=== PATIENT | male | born 1970 | race Caucasian/White ===

== ENCOUNTER → 2019-10-25 16:06 | Outpatient (BNVA) | payer OTHER, SELFPAY | PROVIDERS: Family Provider Family Medicine; PCP Family Medicine; Visit Provider Social Worker | DX: F33.2 Major depressive disorder, recurrent severe without psychotic features (principal); F41.1 Generalized anxiety disorder | CPT/HCPCS: 90834 ==

== ENCOUNTER → 2019-11-09 08:40 | Outpatient (BNVA) | payer OTHER, SELFPAY | PROVIDERS: Family Provider Family Medicine; PCP Family Medicine; Referring Provider Family Medicine; Visit Provider Psychiatry & Neurology Neurology | DX: G56.00 Carpal tunnel syndrome, unspecified upper limb (principal) | CPT/HCPCS: 95886; 95909 ==

== ENCOUNTER 2019-11-24 15:26 | Outpatient (CLI) | payer OTHER, SELFPAY ==
--- NOTE | 2019-11-24 16:45 | MR_ITS ---
WS: [id number] MRI CERVICAL SPINE HISTORY: neck pain COMPARISON: 04/19/2019 Mild straightening of the normal cervical lordosis. Prior anterior cervical fusion at C5-6. Signal within the cervical cord is normal. Visualized posterior fossa is unremarkable. Craniocervical junction, C1 and C2 relationship, odontoid process and soft tissues are normal. C2-C3: Normal. C3-C4: Normal. C4-C5: Normal. C5-C6: Mild narrowing of the RIGHT foramen. No significant stenosis. C6-C7: Mild osteophytic ridging with facet arthropathy and foraminal osteophytes. Very mild narrowing and encroachment upon the ventral thecal sac. Moderate bilateral foraminal stenosis. C7-T1: Small osteophyte LEFT foramen. Paraspinal soft tissue are normal. MR/MR cervical spin wo con* [id number] IMPRESSION: 1. Status post anterior cervical fusion at C5-6 with no complications. 2. Mild central and moderate bilateral foraminal stenosis at C6-7. Similar to the prior study.
== END 2019-11-24 15:27 | disposition home or self-care (01) ==
PROVIDERS: Family Provider Family Medicine; PCP Family Medicine; Visit Provider Family Medicine
DX: M54.2 Cervicalgia (principal); Z98.1 Arthrodesis status; M48.02 Spinal stenosis, cervical region
CPT/HCPCS: 72141

== ENCOUNTER → 2019-11-29 15:27 | Outpatient (BNVA) | payer OTHER, SELFPAY | PROVIDERS: Family Provider Family Medicine; PCP Family Medicine; Visit Provider Social Worker | DX: F33.2 Major depressive disorder, recurrent severe without psychotic features (principal); F41.1 Generalized anxiety disorder | CPT/HCPCS: 90834 ==

== ENCOUNTER → 2020-03-23 14:44 | Outpatient (BNVA) | payer OTHER, SELFPAY | PROVIDERS: Family Provider Family Medicine; PCP Family Medicine; Visit Provider Anesthesiology | DX: M54.9 Dorsalgia, unspecified (principal); M54.12 Radiculopathy, cervical region; Z79.1 Long term (current) use of non-steroidal anti-inflammatories (NSAID) | CPT/HCPCS: 99213; 99214 ==

== ENCOUNTER 2020-04-11 14:35 | Outpatient (CLI) | payer OTHER, SELFPAY ==
--- NOTE | 2020-04-11 14:39 | XR_ITS ---
WS: [id number] KNEE LEFT TECHNIQUE: 3 views of the left knee CLINICAL INFORMATION: left knee pain COMPARISON: None. FINDINGS: Left knee is normal in appearance. No evidence of acute fracture dislocation. No significant effusion . Patella is normal. Mild soft tissue edema. XR/XR knee LT 3V* [id number] IMPRESSION: Mild soft tissue edema. No acute fractures.
== END 2020-04-11 14:36 | disposition home or self-care (01) ==
LOC: RADWPI 14:37
PROVIDERS: Family Provider Family Medicine; PCP Family Medicine; Visit Provider Family Medicine
DX: M25.562 Pain in left knee (principal); G89.29 Other chronic pain; R60.9 Edema, unspecified
CPT/HCPCS: 73562

== ENCOUNTER 2020-04-18 15:38 | Outpatient (CLI) | payer OTHER, SELFPAY ==
[2020-04-18 15:58] LABS: Basophils % 0.4 %; Eosinophils # 0.4 10^3/uL (0.0-0.8); Eosinophils % 5.2 %; Hematocrit 42.8 % (42.0-52.0); Hemoglobin 14.2 g/dL (11.7-16.6); Lymphocytes % 35.7 %; Mean Corpuscular HGB Conc 33.2 g/dL (30.0-36.0); Mean Corpuscular Hemoglobin 29.2 pg (28.0-34.0); Mean Corpuscular Volume 88.1 fL (80-94); Mean Platelet Volume 8.7 fL (7.4-10.4); Monocytes # 0.5 10^3/uL (0.2-0.9); Monocytes % 5.8 %; Neutrophils # 4.4 10^3/uL (1.8-7.7); Neutrophils % 52.8 %; Nucleated Red Blood Cells % 0 %; Platelet Count 310 10^3/cmm (130-400); Red Blood Count 4.86 10^6/uL (4.1-5.3); Red Cell Distribution Width 12.5 % (12.1-15.1); White Blood Count 8.4 10^3/uL (4.0-10.0)
[2020-04-18 22:40] LABS: Prostate Specific Antigen Scr 1.02 ng/mL (0-4)
[2020-04-18 22:51] LABS: Alanine Aminotransferase 21 U/L (0-41); Albumin Level 4.6 g/dL (3.5-5.2); Alkaline Phosphatase 61 IU/L (40-130); Anion Gap 19.9 (5-19); Aspartate Amino Transferase 29 U/L (0-40); Blood Urea Nitrogen 16 mg/dL (6-20); Carbon Dioxide 23 mmol/L (22-29); Chloride 102 mmol/L (98-107); Chol HDL Ratio 4.88 mg/dL (1.0-5.00); Cholesterol 210 mg/dL (0-200); Globulin 2.5 g/dL (1.3-4.6); Glomerular Filtration Rate 103.2 mL/min (90-130); Glucose 87 mg/dL (65-115); HDL Cholesterol 43 mg/dL (60-100); LDL Cholesterol Calculated 123 mg/dL (50-129); LDL HDL Ratio 2.86 RATIO (0.00-3.22); Osmolality Calculated 288 mOsm/kg (285-295); Potassium 3.9 mmol/L (3.5-5.1); Sodium 141 mmol/L (136-145); Total Bilirubin 0.4 mg/dL (0.15-1.2); Total Protein 7.1 g/dL (6.6-8.7); Triglycerides 221 mg/dL (0-150)
== END 2020-04-18 15:39 | disposition home or self-care (01) ==
LOC: LAB 15:42
PROVIDERS: PCP Family Medicine; Visit Provider Family Medicine
DX: I10 Essential (primary) hypertension (principal); Z12.5 Encounter for screening for malignant neoplasm of prostate
CPT/HCPCS: 80053; 80061; 85025; G0103

== ENCOUNTER 2020-05-16 15:29 | Outpatient (RCR) | payer OTHER, SELFPAY | END 2020-05-19 23:59 | disposition home or self-care (01) | LOC: SPT 15:29 | PROVIDERS: PCP Family Medicine; Visit Provider Family Medicine | DX: M25.562 Pain in left knee (principal) | CPT/HCPCS: 97110; 97161 ==

== ENCOUNTER 2020-07-24 06:00 | Outpatient (RCR) | payer OTHER, SELFPAY | END 2020-08-19 23:59 | disposition home or self-care (01) | LOC: SPT 06:00 | PROVIDERS: PCP Family Medicine; Referring Provider Family Medicine; Visit Provider Family Medicine | DX: M25.562 Pain in left knee (principal); G89.29 Other chronic pain | CPT/HCPCS: 97161 ==

== ENCOUNTER → 2020-08-07 15:51 | Outpatient (BNVA) | payer OTHER, SELFPAY | PROVIDERS: PCP Family Medicine; Visit Provider Dermatology | DX: D48.9 Neoplasm of uncertain behavior, unspecified (principal) | CPT/HCPCS: 88304 ==

== ENCOUNTER → 2020-08-23 15:46 | Outpatient (BNVA) | payer OTHER, SELFPAY | PROVIDERS: PCP Family Medicine; Visit Provider Family Medicine | DX: E03.9 Hypothyroidism, unspecified (principal) | CPT/HCPCS: 84443 ==

== ENCOUNTER → 2020-08-28 15:18 | Outpatient (BNVA) | payer OTHER, SELFPAY | PROVIDERS: PCP Family Medicine; Visit Provider Specialist | DX: R53.1 Weakness (principal); M25.562 Pain in left knee; G89.29 Other chronic pain | CPT/HCPCS: 99215 ==

== ENCOUNTER 2020-10-20 06:00 | Outpatient (RCR) | payer OTHER, SELFPAY | END 2020-11-19 23:59 | disposition home or self-care (01) | LOC: SPT 06:00 | PROVIDERS: PCP Family Medicine; Referring Provider Family Medicine; Visit Provider Family Medicine | DX: M25.562 Pain in left knee (principal) | CPT/HCPCS: 97110 ==

== ENCOUNTER → 2020-11-08 13:47 | Outpatient (BNVA) | payer OTHER, SELFPAY | PROVIDERS: PCP Family Medicine; Visit Provider Anesthesiology | DX: G89.29 Other chronic pain (principal); M54.12 Radiculopathy, cervical region; Z79.1 Long term (current) use of non-steroidal anti-inflammatories (NSAID); Z79.891 Long term (current) use of opiate analgesic | CPT/HCPCS: 99213 ==

== ENCOUNTER → 2021-03-28 15:49 | Outpatient (BNVA) | payer OTHER, SELFPAY | PROVIDERS: PCP Family Medicine; Visit Provider Family Medicine | DX: E03.9 Hypothyroidism, unspecified (principal); I10 Essential (primary) hypertension; Z13.6 Encounter for screening for cardiovascular disorders | CPT/HCPCS: 84443 ==

== ENCOUNTER 2021-04-02 14:56 | Outpatient (CLI) | payer OTHER, SELFPAY ==
[2021-04-02 15:18] LABS: Basophils % 0.5 %; Eosinophils # 0.4 10^3/uL (0.0-0.8); Hematocrit 42.7 % (42.0-52.0); Hemoglobin 14.4 g/dL (11.7-16.6); Lymphocytes # 3.5 10^3/uL (0.8-4.8); Lymphocytes % 43.5 %; Mean Corpuscular HGB Conc 33.7 g/dL (30.0-36.0); Mean Corpuscular Hemoglobin 29.2 pg (28.0-34.0); Mean Corpuscular Volume 86.6 fL (80-94); Mean Platelet Volume 8.6 fL (7.4-10.4); Monocytes # 0.5 10^3/uL (0.2-0.9); Monocytes % 6.3 %; Neutrophils # 3.53 10^3/uL (1.8-7.7); Neutrophils % 44.4 %; Nucleated Red Blood Cells % 0 %; Platelet Count 320 10^3/cmm (130-400); Red Blood Count 4.93 10^6/uL (4.1-5.3); Red Cell Distribution Width 11.9 % (12.1-15.1)
[2021-04-02 15:57] LABS: Alanine Aminotransferase 18 U/L (0-41); Albumin Level 4.4 g/dL (3.5-5.2); Alkaline Phosphatase 64 IU/L (40-130); Anion Gap 14.8 (5-19); Aspartate Amino Transferase 27 U/L (0-40); Blood Urea Nitrogen 20 mg/dL (6-20); Carbon Dioxide 30 mmol/L (22-29); Chloride 99 mmol/L (98-107); Chol HDL Ratio 4.43 mg/dL (1.0-5.00); Cholesterol 195 mg/dL (0-200); Globulin 2.5 g/dL (1.3-4.6); Glomerular Filtration Rate 102.7 mL/min (90-130); Glucose 86 mg/dL (65-115); HDL Cholesterol 44 mg/dL (60-100); LDL Cholesterol Calculated 126 mg/dL (50-129); LDL HDL Ratio 2.86 RATIO (0.00-3.22); Osmolality Calculated 292 mOsm/kg (285-295); Potassium 3.8 mmol/L (3.5-5.1); Sodium 140 mmol/L (136-145); Total Bilirubin 0.5 mg/dL (0.15-1.2); Total Protein 6.9 g/dL (6.6-8.7); Triglycerides 123 mg/dL (0-150)
[2021-04-03 13:23] LABS: Prostate Specific Antigen Scr 1.05 ng/mL (0-4)
== END 2021-04-02 14:57 | disposition home or self-care (01) ==
PROVIDERS: PCP Family Medicine; Visit Provider Family Medicine
DX: Z12.5 Encounter for screening for malignant neoplasm of prostate (principal); I10 Essential (primary) hypertension; Z13.6 Encounter for screening for cardiovascular disorders
CPT/HCPCS: 36415; 80053; 80061; 85025; G0103

== ENCOUNTER → 2021-06-07 15:16 | Outpatient (BNVA) | payer OTHER, SELFPAY | PROVIDERS: PCP Family Medicine; Referring Provider Nurse Practitioner Family; Visit Provider Podiatrist Foot & Ankle Surgery | DX: M79.673 Pain in unspecified foot (principal); M18.9 Osteoarthritis of first carpometacarpal joint, unspecified | CPT/HCPCS: 73630 ==

== ENCOUNTER → 2021-10-29 16:06 | Outpatient (BNVA) | payer OTHER, SELFPAY | PROVIDERS: PCP Family Medicine; Visit Provider Family Medicine | DX: E03.9 Hypothyroidism, unspecified (principal) | CPT/HCPCS: 84443 ==

== ENCOUNTER 2021-12-14 16:16 | Outpatient (CLI) | payer OTHER, SELFPAY ==
--- NOTE | 2021-12-14 16:38 | ECG_ITS ---
[facility] Test Date: 2021-12-14 Pat Name: Rob Hernandez Department: Room: Gender: Male Anchorer: : 1970 Requested By: DOCTOR NOT ON FILE Order Number: [id number] López MD: Shante Thayer M.D. Measurements Intervals [place] Rate: 61 P: 36 MO: 157 QRS: 17 QRSD: 105 T: 23 QT: 399 QTc: 403 Interpretive Statements SINUS RHYTHM LOW QRS VOLTAGE IN PRECORDIAL LEADS [QRS DEFLECTION < 1.0 mV IN CHEST LEADS] No previous ECG available for comparison Electronically Signed On 12-15-2021 18:05:53 BUSINESS SEGMENT MANAGER by Shatne Thayer M.D. [email or web address] Rodovi[facility]riosupper [facility] medical centerFAAH [email or web address]/[id number]
== END 2021-12-14 16:17 | disposition home or self-care (01) ==
PROVIDERS: PCP Family Medicine; Visit Provider Orthopaedic Surgery
DX: Z01.810 Encounter for preprocedural cardiovascular examination (principal)
CPT/HCPCS: 93005

== ENCOUNTER 2022-01-08 06:00 | Outpatient (RCR) | payer OTHER, SELFPAY | END 2022-01-17 23:59 | disposition home or self-care (01) | LOC: SPT 06:00 | PROVIDERS: PCP Family Medicine; Visit Provider Physician Assistant Surgical | DX: Z47.89 Encounter for other orthopedic aftercare (principal) | CPT/HCPCS: 97110; 97161; G0283 ==

== ENCOUNTER 2022-01-18 06:00 | Outpatient (RCR) | payer OTHER, SELFPAY | END 2022-02-16 23:59 | disposition home or self-care (01) | LOC: SPT 06:00 | PROVIDERS: PCP Family Medicine; Visit Provider Physician Assistant Surgical | DX: Z47.1 Aftercare following joint replacement surgery (principal); Z96.651 Presence of right artificial knee joint | CPT/HCPCS: 97110 ==

== ENCOUNTER 2022-08-20 14:58 | Outpatient (CLI) | payer OTHER, SELFPAY ==
--- NOTE | 2022-08-20 15:44 | XRR_ITS ---
PROCEDURE INFORMATION: Exam: XR Cervical Spine Exam date and time: 08/20/2022 3:48 PM Age: 52 years old Clinical indication: Neck pain; Prior surgery; Additional info: Chronic neck pain TECHNIQUE: Imaging protocol: Radiologic exam of the cervical spine. Views: 4 or 5 views. Total images: 2 COMPARISON: MR cervical spin wo con* [id number] 11/24/2019 3:56 PM FINDINGS: Bones/joints: C5-C6 anterior cervical spine fusion. Plate and screws in place with no evidence of hardware failure. C6-C7 degenerative disc disease with disc space narrowing and osteophyte formation. No evidence of dynamic instability with flexion and extension maneuvers. Soft tissues: Unremarkable. XR/XR cervical spine 4-5V [id number] IMPRESSION: 1. C5-C6 anterior cervical spine fusion. Plate and screws in place with no evidence of hardware failure. 2. C6-C7 degenerative disc disease with disc space narrowing and osteophyte formation. 3. No evidence of dynamic instability with flexion and extension maneuvers.
== END 2022-08-20 14:59 | disposition home or self-care (01) ==
LOC: RAD 15:04
PROVIDERS: PCP Family Medicine; Visit Provider Family Medicine
DX: G89.29 Other chronic pain (principal); M50.323 Other cervical disc degeneration at C6-C7 level; Z98.1 Arthrodesis status
CPT/HCPCS: 72050

== ENCOUNTER 2022-10-03 15:12 | Outpatient (CLI) | payer OTHER, SELFPAY ==
--- NOTE | 2022-10-03 16:00 | MR_ITS ---
WS: [id number] MRI CERVICAL SPINE NONCONTRAST HISTORY: Neck pain. Bilateral upper extremity pain. COMPARISON: 11/24/2019 Technique: Multiplanar, multisequence noncontrast imaging of the cervical spine. Prior anterior cervical fusion at C5-6 with interbody spacer. No adverse change in appearance of the fusion. There is no edema. Mild disc space narrowing at C6-7. No signal abnormality within the cord. Craniocervical junction, C1 and C2 relationship, odontoid process and soft tissues are normal. C2-C3: Normal. C3-C4: Normal. C4-C5: Mild osteophytic ridging. No stenosis. C5-C6: No significant central stenosis. Mild RIGHT foraminal narrowing is similar to the prior study. There is probably small osteophyte in the RIGHT foramen. C6-C7: Mild osteophytic ridging and facet joint arthritis. Moderate to severe bilateral foraminal alfreda nosis. There is mild central stenosis. C7-T1: Small central disc protrusion. T2-3: Small central vertebral body osteophyte with mild contact on the thoracic cord. Paraspinal soft tissue are normal. MR/MR cervical spin wo con* [id number] IMPRESSION: 1. Status post anterior cervical fusion at C5-C6 is stable. No adverse changes . 2. Moderate to severe bilateral foraminal stenosis at C6-7. Probably due to co mbination of osteophytes and disc and facet disease. Similar with very minimal progression since the prior study. 3. Small central vertebral body osteophyte at T2-3 contacts the ventral thorac ic cord without displacement.
== END 2022-10-03 15:13 | disposition home or self-care (01) ==
LOC: RAD 15:14
PROVIDERS: PCP Family Medicine; Visit Provider Physician Assistant
DX: Z98.1 Arthrodesis status (principal); M48.02 Spinal stenosis, cervical region; M25.78 Osteophyte, vertebrae
CPT/HCPCS: 72141

== ENCOUNTER 2022-10-08 15:32 | Outpatient (CLI) | payer OTHER, SELFPAY | END 2022-10-08 15:33 | disposition home or self-care (01) | LOC: SPT 15:32 | PROVIDERS: PCP Family Medicine; Visit Provider Physician Assistant | DX: Z46.89 Encounter for fitting and adjustment of other specified devices (principal); M54.2 Cervicalgia | CPT/HCPCS: 97760; L0172 ==

== ENCOUNTER 2022-10-25 14:28 | Outpatient (CLI) | payer OTHER, SELFPAY ==
--- NOTE | 2022-10-25 14:40 | XR_ITS ---
WS: [id number] Lumbar spine, AP view, lateral views in flexion, extension and neutral position, 10/25/2022 Clinical Data: M47.816 - Spondylosis without myelopathy or radiculopathy... Comparison: None. Findings: No compression fractures or subluxation is seen. There is degenerative disc narrowing at L1-L2 with a nterior spurring. The transverse processes and SI joints are normal. There are Schmorl's nodes at the anterior inferior aspect of L2 and anterior superior aspect of L4. N o limitation of motion or subluxation is seen in flexion or extension. XR/XR lumbar spine min 4V [id number] Impression: 1. Degenerative disc narrowing at L1-L2 with osteophyte formation. 2. Negative for limitation of motion or subluxation on flexion or extension.
== END 2022-10-25 14:29 | disposition home or self-care (01) ==
LOC: RAD 14:31
PROVIDERS: PCP Family Medicine; Visit Provider Physician Assistant
DX: M47.816 Spondylosis without myelopathy or radiculopathy, lumbar region (principal); M25.78 Osteophyte, vertebrae
CPT/HCPCS: 72110

== ENCOUNTER 2022-11-27 06:36 | Day surgery (SDC) | payer OTHER, SELFPAY ==
[2022-10-31 13:40] VITALS: BMI 30.3
--- NOTE | 2022-10-31 13:58 | ANES.PREANE2 ---
Pre-Anesthetic Assessment Height/Weight: Height 1.85 m Weight 104.326 kg Operation Date: 11/06/22 14:15 Proposed Procedures p ACDF W DISCECTOMY AND DECOMPRESSION C6/7 [id number]/M54.12(Not Applicable) - Cody Cantu DO s Discectomy(Not Applicable) - Cody Cantu DO Familial anesthetic complications: wakes up confused, crawling out of bed Social No alcohol and No tobacco Exam alert, oriented x 3, clear to auscultation bilaterally and regular rate & rhythm Airway Mallampati: Class III Dentition: chipped and other (poor dentition) Pulmonary Sleep Apnea CV/HEM Hypertension None reported Hepatic None reported GI None reported Metabolic Thyroid Disease Musc/skel neck pain Neuropsych None reported Anesthetic Plan ASA status: 2 Anesthesia: General Risk of > 500 ml blood loss (7ml/kg in children): No Medications/Allergies Home Medications Medication Instructions Recorded Confirmed Last Taken Type chlorthalidone 25 mg tablet 25 mg PO DAILY #90 tabs 03/27/22 10/31/22 10/31/22 Rx levothyroxine 25 mcg tablet 25 mcg PO DAILY #90 tabs 09/04/22 10/31/22 10/31/22 Rx Cervical Spine Collar #1 ea 10/08/22 10/29/22 Unknown Rx Intraoperative neuromonitoring #1 ea 10/28/22 10/29/22 Unknown Rx Allergies Allergy/AdvReac Type Severity Reaction Status Date / Time legumes Allergy difficulty Verified 10/29/22 08:16 swallowing seafood Allergy difficulty Uncoded 10/29/22 08:16 swallowing PFSH Anesthesia Medical History Autoimmune disease Benign essential HTN Chronic neck pain DDD (degenerative disc disease) Encounter for long-term (current) use of NSAIDs Hx of emphysema Hyperlipidemia, acquired Hypothyroidism (acquired) Situational anxiety Surgical History (Updated 10/31/22 @ 13:40 by Nadia Bassett) History of back surgery C5-C6 FUSION Hx of nasal septoplasty Social History Smoking and tobacco status: never smoked Second hand smoke exposure: Yes Alcohol intake: never Desire information about alcohol rehabilitation?: No Desire information about substance/drug rehabilitation?: No History of recent travel: No Data Anesthesia Cardiac Studies: No Data to Display
[2022-11-27] VITALS (10 sets, daily range): BP systolic 110–175; BP diastolic 43–104; PULSE 59–96; RESP 16–18; TEMP 36.1–36.2; O2SAT 94–98
--- NOTE | 2022-11-27 07:11 | W.PM.OPSUD ---
Surgery/Procedure H&P Update DATE OF PROCEDURE: November 27, 2022 DATE H&P PERFORMED: 11/14/22 H&P UPDATE INFORMATION: I have reviewed H&P completed within last 30 days, I have examined patient prior to procedure and No changes to prior documentation PREOP DIAGNOSIS: Degenerative disc disease cervical spine with radiculopathy PLANNED PROCEDURE: Operation Date: 11/27/22 08:20 Proposed Procedures p ACDF W DISCECTOMY AND DECOMPRESSION C6/7 [id number]/87035/M54.12(Not Applicable) - Cody Cantu DO s Discectomy(Not Applicable) - Cody Cantu DO
--- NOTE | 2022-11-27 07:22 | P.ANESUD_ITS ---
Pre-Anesthetic Update Pre-Anesthetic Assessment: Date of Surgery/Procedure: 11/27/22 Preop Jenifer gnosis: Degenerative disc disease cervical spine with radiculopathy Proposed Procedure: Operation Date: 11/27/22 08:20 Proposed Procedures p ACDF W DISCECTOMY AND DECOMPRESSION C6/7 [id number]/15194/M54.12(Not Applicable) - Cody Cantu, DO s Discectomy(Not Applicable) - Cody Cantu, DO Any changes to Pre-Anesthetic Assessment?: No Last Intake: Intake Last Liquid Date 11/26/22 Last Liquid Time 20:00 Last Solid Date 11/26/22 Last Solid Time 20:00 Vitals: Temperature 97.2 F L 11/27/22 07:04 Temperature Source Temporal Artery S can 11/27/22 07:04 Pulse Rate 59 L 11/27/22 07:04 Respiratory Rate 18 11/27/22 07:04 Blood Pressure 161/104 11/27/22 07:04 Blood Pressure Edith n 123 11/27/22 07:04 Pulse Oximetry 98 11/27/22 07:04 Oxygen Delivery Me thod 11/27/22 07:08 Exam: Pre-Anes Outpt Exam: alert, oriented x 3, clear to auscultation bilaterally and regular rate & rhythm Cardiac Studies: No Data to Display
[2022-11-27] MEDS: sodium chloride 0.9% 1,000 ML 30 ML IV (07:27)
[2022-11-27] MEDS: ceFAZolin 2,000 MG in sodium chloride 0.9% (plus) 50 ML 100 MG IV (07:45)
--- NOTE | 2022-11-27 09:22 | XR_ITS ---
WS: [id number] XR cervical spine 1Vport [id number] REASON FOR EXAM: or pics FINDINGS: Pre-existing anterior plate and screw fixation of C5-C6 with interbody fusion. Currently anterior fusion with oblique screw fixation of C6 and C7 with interbody fusion device. Surgical appliances are in proper position and alignment. XR/XR cervical spine 1Vport [id number] IMPRESSION: Anterior fusion C6-C7 as above.
--- NOTE | 2022-11-27 09:48 | P.OP_ITS ---
Operative Report Date of procedure: November 27, 2022 Pre-op diagnosis: Preop Diagnosis Degenerative disc disease cervical spine with radiculopathy Post-op diagnosis: same Procedure done: 1. Anterior discectomy C6/7 2. Insertion of Cage C6/7 3. Instrumentation w C6-C7 4. Use of allograft Surgeon: Cody Cantu V Belt Inspector: Wade Stanley V Belt Inspector: The surgical instrument technician, Wade Stanley, CAIO was needed for his expertise under the microscope. He was important and necessary throughout the procedure to complete in a safe and timely manner. He assisted with patient positioning prepping and draping tissue retraction suctioning of the operative field protection of the dural sac and tissue closure Estimated blood loss (mL): 25 Procedure: 1. Anterior discectomy C6/7 2. Insertion of Cage C6/7 3. Instrumentation w C6-C7 4. Use of allograft The patient was taken to the operating room, where he underwent general endotracheal anesthesia without complications. He was then positioned supine on the operating table, and all areas of impingement were well padded. The arms were carefully padded and tucked at his sides. A roll was placed between the shoulder blades.. An x-ray was done to determine the appropriate level for the skin incision. The entire neck was then sterilely prepped and draped in the usual fashion. Neuromonitoring was attached prior to prepping. A transverse skin incision was made and carried down to the platysma muscle. This was then split in line with its fibers. Blunt dissection was carried down medial to the carotid sheath and lateral to the trachea and esophagus until the anterior cervical spine was visualized. A needle was placed into a disc and an x-ray was done to determine its location. The longus colli muscles were then elevated bilaterally with the electrocautery unit. Self-retaining retractors were placed deep to the longus colli muscle. Attention was brought to the C6/7 level that was confirmed on x-ray. A caspar pin was placed into the C6 vertebrae and the C7 vertebrae. The disk space was then distracted. The microscope was then brought in. A radical anterior discectomies were performed at C6/7. This included complete removal of the anterior annulus, nucleus, and posterior annulus. The posterior longitudinal ligament was removed as were the posterior osteophytes. Foraminotomies were then accomplished bilaterally. This was done using a high speed stefani, kerrison rongeurs and curretes Once all of this was accomplished, the curved currette was used to check for any residual compression. The central canal was wide open as were the foramen. A high-speed bur was used to remove the cartilaginous endplates above and below the interspace. Bleeding cancellous bone was exposed. The disc space were measured and appropriate size cage were placed sterilely onto the field. Allograft graft was packed into the cages. The cage was then placed and there was good juxtaposition against the bleeding decorticated surfaces and good distraction of each interspace. The [place] pins were removed. Bone wax was used to prevent any bleeding from occurring at the pin sites. Screws were then placed through the jig of the cage. The awl was used to pass going from inferior to superior into the C6 vertebrae and then screw was placed and then going from superior to inferior going to the C7 vertebral body. Screw was placed.. There was excellent purchase. A final x-ray was done confirming good position of the hardware and Cages. Following a final copious irrigation, there was good hemostasis and no dural leaks. The carotid pulse was strong. The wounds were then closed in layers using 2-0 Vicryl suture for the platysma muscle, 2-0 Vicryl suture for the subcutaneous tissue, and 4-0 monocryl suture in a subcuticular skin closure. Glue was placed followed by application of a sterile dressing. The drain was hooked to bulb suction. A soft collar was applied. The patient was then carefully returned to the supine position on his hospital bed where he was reversed and extubated and taken to the recovery room having tolerated the procedure well.
[2022-11-27] MEDS: fentaNYL 50 mcg/mL INJ 2mL IVP (09:54)
--- NOTE | 2022-11-27 13:44 | ANE.PACU2 ---
Inpatient post-anesthesia follow up: Airway intact: Yes Vital signs: Temperature 97.2 F Pulse Rate 65 Respiratory Rate 16 Blood Pressure 157/94 Pulse Oximetry 94 Oxygen Delivery Me thod Room Air Oxygen Flow Rate 6 Fraction of Inspir ed Oxygen Hydration adequate: Yes Nausea and vomiting: No Pain level: 1 Mental status: Baseline
== END 2022-11-27 11:00 | disposition home or self-care (01) ==
PROVIDERS: PCP Family Medicine; Visit Provider Orthopaedic Surgery
PROC: 0RB30ZZ Excision of Cervical Vertebral Disc, Open Approach (ICD-10-PCS; CPT 22551; principal; 2022-11-27 08:20)
PROC: (CPT 20930; 2022-11-27 08:20)
DX: M50.123 Cervical disc disorder at C6-C7 level with radiculopathy (principal); G47.30 Sleep apnea, unspecified; I10 Essential (primary) hypertension; J43.9 Emphysema, unspecified; E78.5 Hyperlipidemia, unspecified; E03.9 Hypothyroidism, unspecified
CPT/HCPCS: 20930; 22551; 22845; 22853; 72020; 76000; C1713; C9359; J0131; J0330; J0690; J1100; J1200; J2405; J2704; J3010; J3490; J7030

== ENCOUNTER 2022-12-11 00:13 | Emergency (ER) | payer OTHER, SELFPAY ==
[2022-12-11 00:20] VITALS: BP 155/97; PULSE 65; RESP 18; TEMP 36.8; O2SAT 97; BMI 30.3
--- NOTE | 2022-12-11 02:36 | CTR_ITS ---
PROCEDURE INFORMATION: Exam: CT Neck With Contrast Exam date and time: 12/11/2022 2:50 AM Age: 52 years old Clinical indication: Dysphagia / difficulty swallowing; Prior surgery; Surgery date: <1 month; Patient HX: C/O dysphagia with hoarseness, cough, and SOB. Cervical fusion less than two weeks ago. TECHNIQUE: Imaging protocol: Computed tomography of the neck with contrast. Radiation optimization: All CT scans at this facility use at least one of these dose optimization techniques: automated exposure control; mA and/or kV adjustment per patient size (includes targeted exams where dose is matched to clinical indication); or iterative reconstruction. Contrast material: OMNI 350; Contrast volume: 100 ml; Contrast route: INTRAVENOUS (IV); REPORTING DATA: Count of CT and Cardiac NM exams in prior 12 months: This patient has received 0 known CTs and 0 known cardiac nuclear medicine studies in the 12 months prior to the current study. COMPARISON: MR cervical spin wo con* [id number] 10/03/2022 3:30 PM RADIATION DOSE METRICS: Total DLP (mGy-cm): 320.01 FINDINGS: Paranasal sinuses: Right maxillary sinus mucosal thickening with air-fluid level. Mucous retention cyst versus polyp. Pharynx: Unremarkable. No significant tonsillar enlargement. Larynx: Unremarkable. Epiglottis is normal. Prevertebral and retropharyngeal spaces: Unremarkable. Salivary glands: Normal. Glands are normal in size. Thyroid: Normal. No enlarged or calcified nodules. Lymph nodes: Unremarkable. No lymphadenopathy. Trachea: Visualized trachea is unremarkable. Lungs: Unremarkable as visualized. Bones/joints: Anterior cervical spine fusion involving C5, C6, C7. Unremarkable alignment. No fracture. No loosening of hardware. Soft tissues: Unremarkable. No significant soft tissue swelling. CT/CT neck w con* [id number] IMPRESSION: Unremarkable CT neck. No acute abnormality. No postsurgical complication identified.
--- NOTE | 2022-12-11 02:36 | XRR_ITS ---
PROCEDURE INFORMATION: Exam: XR Chest Exam date and time: 12/11/2022 2:40 AM Age: 52 years old Clinical indication: Cough and shortness of breath; Prior surgery; Surgery date: <1 month; Patient HX: C/O dysphagia with hoarseness, cough, and SOB. Cervical fusion less than two weeks ago. TECHNIQUE: Imaging protocol: Radiologic exam of the chest. Views: 1 view. COMPARISON: OT XR cervical spine 1Vport [id number] 11/27/2022 9:06 AM FINDINGS: Lungs: Unremarkable. No consolidation. Pleural spaces: Unremarkable. No pleural effusion. No pneumothorax. Heart/Mediastinum: Unremarkable. No cardiomegaly. Bones/joints: Unremarkable. XR/XR chest 1V portable [id number] IMPRESSION: No acute findings.
--- NOTE | 2022-12-11 02:37 | ED_ITS ---
HPI - SOB/Dyspnea General: Chief Complaint: Shortness of Breath/Dyspnea Stated Complaint: neck surgery, trouble breathing Time Seen by Provider: 12/11/22 00:24 Source: patient Mode of arrival: ambulatory Limitations: no limitations History of Present Illness: HPI Narrative: 52-year-old male who had a CT DF to cervical spine 2 weeks ago he states that since then he has felt like he is breathing through a straw and has been having difficulty breathing he is currently in a c-collar he is in no distress here he states he feels like he is swelling around his airway. Denies any fevers denies any cough denies any worsening improving factors. Associated symptoms: Deny abdominal pain, chest pain, fever(s), nausea or vomiting Review of Systems Const: Denies: fever(s), chills, body aches or change in appetite Eyes: Denies: blurry vision or eye discomfort ENMT: Denies: throat pain or dental pain Card: Denies: chest pain Resp: Reports: dyspnea GI: Denies: abdominal pain, nausea, vomiting or diarrhea : Denies: dysuria Musc: Denies: neck pain or back pain Skin/Breast: Denies: rash Neuro: Denies: headache(s) Psych: Denies: depression Lazaro/Lymph: Denies: easy bruising All/Imm: Denies: urticaria PFSH ED PFSH: Medical History Autoimmune disease Benign essential HTN Chronic neck pain DDD (degenerative disc disease) Encounter for long-term (current) use of NSAIDs Hx of emphysema Hyperlipidemia, acquired Hypothyroidism (acquired) Situational anxiety Surgical History History of back surgery C5-C6 FUSION Hx of nasal septoplasty Social History Smoking and tobacco status: never smoked Second hand smoke exposure: Yes Alcohol intake: never Desire information about alcohol rehabilitation?: No Desire information about substance/drug rehabilitation?: No Physical Exam Const: COMMON NORMALS: no acute distress, patient oriented x3 and healthy appearing HENMT: COMMON NORMALS: normocephalic and atraumatic HEAD & SCALP: normocephalic and atraumatic Eye: COMMON NORMALS: Equal, round and reactive pupils present and EOMs intact bilaterally PUPIL: Yes Equal, round and reactive pupils present Neck/C-Spine: COMMON NORMALS: full ROM and supple Chest: COMMONS NORMALS: normal inspection of the chest and normal palpation of entire chest wall Resp: COMMON NORMALS: normal respiratory effort, No retractions, No use of accessory muscles and clear to auscultation bilaterally AUSCULTATION: clear to auscultation bilaterally Cardio: COMMON NORMALS: regular rate, regular rhythm and No murmurs present (Cardio) RATE: regular rate RHYTHM: regular rhythm GI: COMMON NORMALS: Normal to inspection, nondistended, normoactive bowel sounds present, Soft to palpation, non-tender and no masses PALPATION: Yes Soft to palpation Extremity: COMMON NORMALS: normal to inspection and full ROM Neuro: COMMON NORMALS: patient oriented x3, moves all extremities and no focal motor deficits Psych: COMMON NORMALS: mental status grossly normal, Normal thought process present and cooperative THOUGHT PROCESS: Normal thought process present Skin: COMMON NORMALS: no rashes or lesions noted and no wounds GENERAL SKIN EXAM: no rashes or lesions noted Course Vital Signs: Vital signs: Vital Signs Temperature 98.3 F 12/11/22 00:20 Pulse Rate 65 12/11/22 00:20 Respiratory Rate 18 12/11/22 00:20 Blood Pressure 155/97 12/11/22 00:20 Pulse Oximetry 97 12/11/22 00:20 Oxygen Delivery Me thod 12/11/22 00:20 MDM - SOB/Dyspnea Medical Decision Making Patient presents here with dyspnea his CAT scan of his neck shows no acute normalities his x-ray is normal his pulse ox is normal here he is in no distress he is stable for discharge he is to follow-up with spine surgeon return if worsening understands with plan. Lab Data 12/11/22 03:28 12/11/22 03:28 Labs/Radiology: Radiology Impressions Chest X-Ray 12/11/22 02:36 IMPRESSION: No acute findings. Neck CT 12/11/22 02:36 IMPRESSION: Unremarkable CT neck. No acute abnormality. No postsurgical complication identified. Laboratory Results WBC 10.0 10^3/uL (4.0-10.0) 12/11/22 03:28 RBC 4.63 10^6/uL (4.1-5.3) 12/11/22 03:28 Hgb 13.5 g/dL (11.7-16.6) 12/11/22 03:28 Hct 40.6 % (42.0-52.0) L 12/11/22 03:28 MCV 87.7 fl (80-94) 12/11/22 03:28 MCH 29.2 pg (28.0-34.0) 12/11/22 03: MCHC 33.3 g/dL (30.0-36.0) 12/11/22 03:28 RDW 11.9 % (12.1-15.1) L 12/11/22 03:28 Plt Count 359 10^3/cmm (130-400) 12/11/22 03:28 MPV 8.7 fL (7.4-10.4) 12/11/22 03:28 Neut % (Auto) 54.5 % 12/11/22 03: Lymph % (Auto) 35.9 % 12/11/22 03:28 Garrett % (Auto) 6.6 % 12/11/22 03:28 Eos % (Auto) 2.3 % 12/11/22 03:28 Baso % (Auto) 0.5 % 12/11/22 03:28 Neut # (Auto) 5.44 10^3/uL (1.8-7.7) 12/11/22 03: Lymph # (Auto) 3.6 10^3/uL (0.8-4.8) 12/11/22 03:28 Garrett # (Auto) 0.7 10^3/uL (0.2-0.9) 12/11/22 03:28 Eos # (Auto) 0.2 10^3/uL (0.0-0.8) 12/11/22 03:28 Baso # (Auto) 0.1 10^3/uL (0.0-0.1) 12/11/22 03:28 Nucleated RBC % (auto) 0 % 12/11/22 03:28 Nucleated RBCs # 0.0 /100WBC 12/11/22 03: PT 13.10 SECONDS (12.1-14.9) 12/11/22 03:28 INR 0.96 (0.8-1.2) 12/11/22 03:28 Sodium 137 mmol/L (136-145) 12/11/22 03:28 Potassium 3.6 mmol/L (3.5-5.1) 12/11/22 03:28 Chloride 99 mmol/L (98-107) 12/11/22 03:28 Carbon Dioxide 26 mmol/L (22-29) 12/11/22 03:28 Anion Gap 15.6 (5-19) 12/11/22 03:28 BUN 18 mg/dL (6-20) 12/11/22 03:28 Creatinine 0.8 mg/dL (0.7-1.2) 12/11/22 03:28 GFR Calculation 101.9 mL/min (90-130) 12/11/22 03:28 Glucose 102 mg/dL (65-115) 12/11/22 03:28 Calculated Osmolality 286 mOsm/kg (285-295) 12/11/22 03:28 Calcium 9.3 mg/dL (8.5-10.5) 12/11/22 03:28 Total Bilirubin 0.4 mg/dL (0.15-1.2) 12/11/22 03:28 AST 21 U/L (0-40) 12/11/22 03:28 ALT 18 U/L (0-41) 12/11/22 03:28 Alkaline Phosphatase 70 U/L (40-130) 12/11/22 03:28 Total Protein 6.6 g/dL (6.6-8.7) 12/11/22 03:28 Albumin 3.9 g/dL (3.5-5.2) 12/11/22 03:28 Globulin 2.7 g/dL (1.3-4.6) 12/11/22 03:28 Discharge Plan Discharge Patient Disposition: Home Clinical Impression: Dyspnea Condition: Stable Prescriptions: No Action (DME) Cervical Spine Collar See Rx Instructions .Route .MEDSUPPLY Qty: 1 0RF Rx Instructions: As directed chlorthalidone 25 mg tablet 25 mg PO DAILY Qty: 90 1RF levothyroxine 25 mcg tablet 25 mcg PO DAILY Qty: 90 1RF (DME) Intraoperative neuromonitoring See Rx Instructions .Route .MEDSUPPLY Qty: 1 0RF Rx Instructions: As directed hydrocodone-acetaminophen 5-325 mg tablet 1 - 2 tab PO .Q4-6H Qty: 40 0RF Discharge Orders: Discharge ED (Routine); Ordered 12/11/22 Ordered By: Beatriz Lucio Referrals: Nia Sahu DO [Primary Care Provider] - 1-3 days Discharge Diet: Advance as tolerated Discharge Activity: Resume usual activity Patient Instructions: Dyspnea (ED) Coding Level of Care Code ED Spreader Operator Automatic for Leroy Garibay
[2022-12-11 03:36] LABS: Basophils # 0.1 10^3/uL (0.0-0.1); Basophils % 0.5 %; Eosinophils # 0.2 10^3/uL (0.0-0.8); Eosinophils % 2.3 %; Hematocrit 40.6 % (42.0-52.0); Hemoglobin 13.5 g/dL (11.7-16.6); Lymphocytes # 3.6 10^3/uL (0.8-4.8); Lymphocytes % 35.9 %; Mean Corpuscular HGB Conc 33.3 g/dL (30.0-36.0); Mean Corpuscular Hemoglobin 29.2 pg (28.0-34.0); Mean Corpuscular Volume 87.7 fl (80-94); Mean Platelet Volume 8.7 fL (7.4-10.4); Monocytes # 0.7 10^3/uL (0.2-0.9); Monocytes % 6.6 %; Neutrophils # 5.44 10^3/uL (1.8-7.7); Neutrophils % 54.5 %; Nucleated Red Blood Cells % 0 %; Platelet Count 359 10^3/cmm (130-400); Red Blood Count 4.63 10^6/uL (4.1-5.3); Red Cell Distribution Width 11.9 % (12.1-15.1)
[2022-12-11 03:51] LABS: INR 0.96 (0.8-1.2)
[2022-12-11 03:56] LABS: Alanine Aminotransferase 18 U/L (0-41); Albumin Level 3.9 g/dL (3.5-5.2); Alkaline Phosphatase 70 U/L (40-130); Anion Gap 15.6 (5-19); Aspartate Amino Transferase 21 U/L (0-40); Blood Urea Nitrogen 18 mg/dL (6-20); Calcium 9.3 mg/dL (8.5-10.5); Carbon Dioxide 26 mmol/L (22-29); Chloride 99 mmol/L (98-107); Creatinine Clr Calc Pharmacy 138.5532; Globulin 2.7 g/dL (1.3-4.6); Glomerular Filtration Rate 101.9 mL/min (90-130); Glucose 102 mg/dL (65-115); Osmolality Calculated 286 mOsm/kg (285-295); Potassium 3.6 mmol/L (3.5-5.1); Sodium 137 mmol/L (136-145); Total Bilirubin 0.4 mg/dL (0.15-1.2); Total Protein 6.6 g/dL (6.6-8.7)
[2022-12-11 04:53] VITALS: BP 137/104; PULSE 62; RESP 16; O2SAT 94
[2022-12-11 04:54] VITALS: BP 137/104; PULSE 62; RESP 16; O2SAT 94
== END 2022-12-11 04:53 | disposition home or self-care (01) ==
PROVIDERS: Emergency Provider Emergency Medicine; PCP Family Medicine
DX: R06.00 Dyspnea, unspecified (principal); I10 Essential (primary) hypertension; J43.9 Emphysema, unspecified; E78.5 Hyperlipidemia, unspecified; Z77.22 Contact with and (suspected) exposure to environmental tobacco smoke (acute) (chronic)
CPT/HCPCS: 70491; 71045; 80053; 85025; 85610; 99284; Q9967

== ENCOUNTER 2023-01-07 14:19 | Outpatient (CLI) | payer OTHER, SELFPAY ==
--- NOTE | 2023-01-07 15:15 | MR_ITS ---
WS: [id number] MRI LUMBAR SPINE NONCONTRAST TECHNIQUE: Sagittal T1, T2 and STIR imaging. Axial T1 and T2 imaging. CLINICAL INFORMATION: pain COMPARISON: CT lumbar 10,018 FINDINGS: Mild lumbar curve. No acute compression. No high-grade central canal stenosis. Disc space narrowing w orse at L1-L2 similar to CT 2018 L1-L2: Mild annular bulging. Slight effacement of the ventral thecal sac. Spinal canal and foramen ar e patent. L2-L3: Slight retrolisthesis. Spinal canal and foramen are patent. Mild facet arthropathy. L3-L4: Mild annular bulging. Slight narrowing of the subarticular recess bilaterally. Mild facet arth ropathy. Spinal canal and foramen are patent. L4-L5: Mild annular bulging. Mild central canal stenosis with slight impingement traversing L5 nerve roots bilaterally. Moderate facet arthropathy. Small bilateral foraminal protrusions with mild LEFT g reater than RIGHT foraminal narrowing. L5-S1: Mild annular bulging. Mild facet arthropathy. Spinal canal and foramen are patent. Visualized pelvic bony structures: Normal. Paravertebral soft tissues: Normal. MR/MR lumbar spine wo con* [id number] IMPRESSION: 1. Mild lumbar curve. No acute compression. No high-grade central canal stenos is. 2. Mild annular bulging L3-L4 L4-L5 with slight effacement of ventral thecal s ac and narrowing of the subarticular recess. This is similar in appearance to 2 018. 3. Small bilateral foraminal protrusions L4-L5 with mild bilateral foraminal n arrowing appears unchanged. This is worse on the LEFT. 4. Mild to moderate facet arthropathy L4-L5 and L5-S1. 5. Disc space narrowing worse at L1-L2 unchanged.
== END 2023-01-07 14:20 | disposition home or self-care (01) ==
PROVIDERS: PCP Family Medicine; Visit Provider Physician Assistant
DX: M47.816 Spondylosis without myelopathy or radiculopathy, lumbar region (principal); M51.26 Other intervertebral disc displacement, lumbar region
CPT/HCPCS: 72148

== ENCOUNTER → 2023-01-09 13:09 | Outpatient (BNVA) | payer OTHER, SELFPAY | PROVIDERS: PCP Family Medicine; Visit Provider Orthopaedic Surgery | DX: Z47.89 Encounter for other orthopedic aftercare (principal); Z98.1 Arthrodesis status | CPT/HCPCS: 72040 ==

== ENCOUNTER → 2023-01-31 13:58 | Outpatient (BNVA) | payer OTHER, SELFPAY | PROVIDERS: PCP Family Medicine; Visit Provider Orthopaedic Surgery | DX: Z47.89 Encounter for other orthopedic aftercare (principal); Z98.1 Arthrodesis status | CPT/HCPCS: 72040 ==

== ENCOUNTER 2023-02-05 05:13 | Outpatient (CLI) | payer OTHER, SELFPAY | END 2023-02-05 05:14 | disposition home or self-care (01) | LOC: SLEEP 02-06 05:13 | PROVIDERS: PCP Family Medicine; Visit Provider Family Medicine | DX: G47.33 Obstructive sleep apnea (adult) (pediatric) (principal) | CPT/HCPCS: 95811 ==

== ENCOUNTER → 2023-02-20 08:38 | Outpatient (BNVA) | payer OTHER, SELFPAY | PROVIDERS: PCP Family Medicine; Visit Provider Orthopaedic Surgery | DX: Z98.1 Arthrodesis status (principal); Z47.89 Encounter for other orthopedic aftercare | CPT/HCPCS: 72040 ==

== ENCOUNTER → 2023-06-13 15:16 | Outpatient (BNVA) | payer OTHER, SELFPAY | PROVIDERS: PCP Family Medicine; Visit Provider Family Medicine | DX: M25.50 Pain in unspecified joint (principal); G89.29 Other chronic pain; E03.9 Hypothyroidism, unspecified; Z12.5 Encounter for screening for malignant neoplasm of prostate | CPT/HCPCS: 80053; 84443; 85025; 85651; 86038; 86140; 86200; 86431; 86812; G0103 ==

== ENCOUNTER 2023-06-17 15:12 | Outpatient (CLI) | payer OTHER, SELFPAY ==
--- NOTE | 2023-06-17 15:29 | XR_ITS ---
WS: [id number] Exam: XR thoracic spine 3V* [id number] Date/Time of Exam: 06/17/2023 3:41 PM Reason For Exam: M54.6 - Pain in thoracic spine No fracture or dislocation noted. Mild spondylosis and degenerative disc change. Minimal S-shaped sco liosis. Normal paraspinal soft tissues. Fusion hardware noted in the lower C-spine. IMPRESSION: 1. Mild degenerative changes and minimal scoliosis. 2. No fracture or malalignment.
[2023-06-17 16:50] LABS: Basophils % 0.4 %; Eosinophils # 0.1 10^3/uL (0.0-0.8); Eosinophils % 0.8 %; Hematocrit 43.6 % (37-53); Lymphocytes # 2.8 10^3/uL (0.8-4.8); Lymphocytes % 30.6 %; Mean Corpuscular HGB Conc 33.9 g/dL (30-55); Mean Corpuscular Hemoglobin 29.1 pg (27-33); Mean Corpuscular Volume 85.7 fl (82-101); Mean Platelet Volume 9.6 fL (7.4-10.4); Monocytes # 0.5 10^3/uL (0.2-0.9); Monocytes % 5.8 %; Neutrophils # 5.67 10^3/uL (1.8-7.7); Neutrophils % 62.2 %; Nucleated Red Blood Cells % 0 %; Platelet Count 324 10^3/cmm (157-399); Red Blood Count 5.09 10^6/uL (3.85-5.65); Red Cell Distribution Width 12.5 % (12.1-15.1); White Blood Count 9.12 10^3/uL (3.29-11.43)
[2023-06-17 16:56] LABS: Erythrocyte Sedimentation Rate 13 mm/hr (0-10)
[2023-06-17 17:16] LABS: Alanine Aminotransferase 28 U/L (0-41); Albumin Level 4.5 g/dL (3.5-5.2); Alkaline Phosphatase 68 U/L (40-130); Aspartate Amino Transferase 31 U/L (0-40); Blood Urea Nitrogen 22 mg/dL (6-20); Calcium 9.5 mg/dL (8.5-10.5); Carbon Dioxide 22 mmol/L (22-29); Chloride 102 mmol/L (98-107); Globulin 3.1 g/dL (1.3-4.6); Glomerular Filtration Rate 101.9 mL/min (90-130); Glucose 96 mg/dL (65-115); Osmolality Calculated 293 mOsm/kg (285-295); Prostate Specific Antigen Scr 1.01 ng/mL (0-4); Sodium 140 mmol/L (136-145); Total Bilirubin 0.3 mg/dL (0.15-1.2); Total Protein 7.6 g/dL (6.6-8.7)
[2023-06-17 17:18] LABS: Thyroid Stimulating Hormone 3.31 uIU/mL (0.27-4.20)
[2023-06-17 17:34] LABS: Anion Gap 19.3 (5-19); Potassium 3.3 mmol/L (3.5-5.1)
[2023-06-19 14:33] LABS: Cyclic Citrullinated Peptide <16 UNITS
[2023-06-19 22:10] LABS: HLA-B27 NEGATIVE (NEGATIVE)
[2023-06-20 11:14] LABS: Anti-Nuclear Antibody Screen POSITIVE (NEGATIVE)
== END 2023-06-17 15:13 | disposition home or self-care (01) ==
PROVIDERS: Absent Provider Anesthesiology Pain Medicine; PCP Family Medicine; Visit Provider Family Medicine
DX: M25.50 Pain in unspecified joint (principal); Z12.5 Encounter for screening for malignant neoplasm of prostate; M47.814 Spondylosis without myelopathy or radiculopathy, thoracic region; M51.34 Other intervertebral disc degeneration, thoracic region; G89.29 Other chronic pain; E03.9 Hypothyroidism, unspecified
CPT/HCPCS: 36415; 72072; 80053; 84443; 85025; 85651; 86038; 86140; 86200; 86431; 86812; G0103

== ENCOUNTER → 2023-11-11 15:48 | Outpatient (BNVA) | payer OTHER, SELFPAY | PROVIDERS: PCP Family Medicine; Visit Provider Family Medicine | DX: E03.9 Hypothyroidism, unspecified (principal) | CPT/HCPCS: 84443 ==

== ENCOUNTER 2023-12-12 13:17 | Outpatient (CLI) | payer OTHER, SELFPAY ==
--- NOTE | 2023-12-12 13:21 | XR_ITS ---
WS: [id number] Examination: XR chest 2V* [id number] Reason for Exam: chronic cough Date: December 12, 2023 Comparison: December 11, 2022 Findings: The heart is not grossly enlarged. The mediastinum is not widened. There is no evidence of pulmonary edema. There is mild thickening of the right costophrenic angle. I see no large effusion or dense consolidat ion. Impression: There is no cardiomegaly or failure There is mild pleural thickening and blunting suspected at the right costophrenic angle.
== END 2023-12-12 13:18 | disposition home or self-care (01) ==
LOC: RAD 13:18
PROVIDERS: PCP Family Medicine; Visit Provider Family Medicine
DX: R05.3 Chronic cough (principal); J92.9 Pleural plaque without asbestos
CPT/HCPCS: 71046

== ENCOUNTER → 2024-01-20 12:52 | Outpatient (BNVA) | payer OTHER, SELFPAY | PROVIDERS: PCP Family Medicine; Visit Provider Orthopaedic Surgery | DX: M54.2 Cervicalgia (principal); G89.29 Other chronic pain | CPT/HCPCS: 72040 ==

== ENCOUNTER → 2024-02-19 08:37 | Outpatient (BNVA) | payer OTHER, SELFPAY | PROVIDERS: PCP Family Medicine; Referring Provider Family Medicine; Visit Provider Student in an Organized Health Care Education/Training Program | DX: M70.21 Olecranon bursitis, right elbow (principal); M25.511 Pain in right shoulder; M75.41 Impingement syndrome of right shoulder; S46.112A Strain of muscle, fascia and tendon of long head of biceps, left arm, initial encounter; R20.0 Anesthesia of skin | CPT/HCPCS: 73030; 73080 ==

== ENCOUNTER → 2024-03-31 11:57 | Outpatient (BNVA) | payer OTHER, SELFPAY | PROVIDERS: PCP Family Medicine; Visit Provider Internal Medicine Rheumatology | DX: R76.8 Other specified abnormal immunological findings in serum (principal); Z79.899 Other long term (current) drug therapy | CPT/HCPCS: 36415; 80076; 82306; 82565; 85025; 86160; 86162; 86235; 86255; 86376; 86800 ==

== ENCOUNTER → 2024-05-03 14:54 | Outpatient (BNVA) | payer OTHER, SELFPAY | PROVIDERS: PCP Family Medicine; Visit Provider Podiatrist Foot & Ankle Surgery | DX: M21.612 Bunion of left foot; M20.22 Hallux rigidus, left foot; M21.622 Bunionette of left foot | CPT/HCPCS: 73630 ==

== ENCOUNTER 2024-06-23 07:11 | Outpatient (CLI) | payer OTHER, SELFPAY ==
--- NOTE | 2024-06-23 07:18 | MR_ITS ---
WS: [id number] MRI RIGHT SHOULDER ARTHROGRAM HISTORY: M25.511 - Pain in right shoulder COMPARISON: Radiograph 02/19/2024 TECHNIQUE: Pre and postcontrast imaging. Gadolinium mixture was injected under fluoroscopy. Coronal T 1 fat sat, sagittal T2 fat sat, coronal T2 fat sat, axial proton density, axial T1 nonfat saturation. Prearthrogram: Advanced AC joint arthropathy. Soft tissue and bony hypertrophy from the clavicle and acromion encroaching upon the myotendinous portion of the supraspinatus. There is a small amount of f luid in the subacromial subdeltoid bursa. Mild subacromial impingement by an osteophyte along the und ersurface of the acromion. Normal position of the biceps tendon. No os acromion. Minimal narrowing of the glenohumeral joint. No rotator cuff muscle atrophy or edema. Very mild tendi nopathy in the distal supraspinatus tendon but no full-thickness tear is identified. Indeterminate fo r a very small insertion site tear of the infraspinatus tendon. There is very slight increased T2 signal in the distal subscapularis tendon and the adjacent biceps t endon near the coracohumeral interval. Suspect there is probably a component of impingement by narrow ing of the coracohumeral interval. No labral tear. Post arthrogram: Good contrast injection into the shoulder joint. There is no contrast extending exte rnal to the joint space into the subacromial-subdeltoid recess. Cannot confirm insertion site tear of the infraspinatus tendon. If this is a tear it is very small. There is contrast extending into the s ubscapularis recess. There is a fluid gap containing contrast involving the distal subscapularis tend on. There does appear to be a subscapularis tendon tear. The adjacent biceps tendon appears appropria te. No labral tear. MR/MR shoulder RT wo/w con [id number] IMPRESSION: 1. Severe AC joint arthritis with encroachment upon the myotendinous portion o f the supraspinatus. 2. Increased T2 signal in the narrowed coracohumeral interval. The increased s ignal is within the biceps tendon in the subscapularis tendon. There is a fluid gap on the postcontrast images in the distal subscapularis tendon suspicious f or high-grade tear. 3. Biceps tendon appears appropriately positioned. 4. No labral tear. 5. Possible very tiny insertion site tear of the infraspinatus tendon.
--- NOTE | 2024-06-23 08:00 | IR_ITS ---
WS: [id number] RIGHT SHOULDER ARTHROGRAM UNDER FLUOROSCOPY. PRIOR TO MRI EVALUATION. HISTORY: RIGHT shoulder pain. Limited range of motion. COMPARISON: Radiograph 02/19/2024 FLUOROSCOPY TIME: 0min [id number] # of spot films: 2 Procedure, risks and complications were explained to the patient. Consent has been obtained. Under fluoroscopic guidance the skin is marked over the medial superior third of the humeral head, cl eansed with ChloraPrep and anesthetized with lidocaine. 22-gauge spinal needle is inserted to the cor jalil of the humeral head. Test injection with Omnipaque reveals the needle is appropriately positioned in the joint. A mixture of 10 cc sterile saline, 5 cc Omnipaque and 0.1 mmol gadolinium are injected under fluoroscopic guidance. Patient tolerated the joint distention well. No complications. IR/IR arthrogram shoulderRT [id number] IMPRESSION: Uncomplicated RIGHT shoulder joint injection prior to MRI.
[2024-06-23] MEDS: iohexol 240 mg/mL 50 mL Btl 15 ML INTRA-ARTI (08:55)
== END 2024-06-23 07:12 | disposition home or self-care (01) ==
LOC: RAD 07:11
PROVIDERS: PCP Family Medicine; Visit Provider Student in an Organized Health Care Education/Training Program
DX: M19.011 Primary osteoarthritis, right shoulder (principal); R93.7 Abnormal findings on diagnostic imaging of other parts of musculoskeletal system; M25.711 Osteophyte, right shoulder
CPT/HCPCS: 23350; 73223; 77002

== ENCOUNTER → 2024-06-30 16:19 | Outpatient (BNVA) | payer OTHER, SELFPAY | PROVIDERS: PCP Family Medicine; Visit Provider Family Medicine | DX: E03.9 Hypothyroidism, unspecified (principal) | CPT/HCPCS: 80053; 84439; 84443 ==

== ENCOUNTER 2024-07-01 05:59 | Day surgery (SDC) | payer OTHER, SELFPAY ==
[2024-07-01] VITALS (7 sets, daily range): BP systolic 117–153; BP diastolic 63–96; PULSE 50–70; RESP 16–18; TEMP 36.2; O2SAT 93–97; BMI 34.9
[2024-07-01] MEDS: sodium chloride 0.9% 1,000 ML 30 ML IV (06:41)
[2024-07-01] MEDS: ketorolac 30 mg/mL INJ IVP (06:42)
[2024-07-01] MEDS: acetaminophen 1,000 MG/100 ML PIGGYBACK 400 MG IV (06:42)
[2024-07-01] MEDS: scopolamine 1.5 Patch 1 PATCH TRANSDERMA (06:43)
--- NOTE | 2024-07-01 07:05 | W.PM.OPSFHP ---
Same Day Surgery H&P Indication for Procedure/HPI DATE OF PROCEDURE: July 01, 2024 CHIEF COMPLAINT/INDICATIONFOR SURGICAL PROCEDURE: Left carpal tunnel syndrome PREOP DIAGNOSIS: Left carpal tunnel syndrome PLANNED PROCEDURE: Operation Date: 07/01/24 07:40 Proposed Procedures p Carpal Tunnel Release(Left) - Missael Melgoza DO Medications/Allergies* Home Medications Medication Instructions Recorded Confirmed Type calcium carbonate (Calcium 600) 600 mg PO DAILY 12/12/23 06/30/24 History cholecalciferol (vitamin D3) 125 125 mcg PO DAILY 12/12/23 06/30/24 History mcg (5,000 unit) capsule Allergies/Adverse Reactions Allergy/AdvReac Type Severity Reaction Status Date / Time legumes Allergy difficulty Verified 06/30/24 15:38 swallowing kiwi Allergy ALGY-Difficulty Uncoded 06/30/24 15:38 Swallowing seafood Allergy difficulty Uncoded 06/30/24 15:38 swallowing Current Medications: Generic Name Dose Route Start Last Admin Trade Name Freq PRN Reason Stop Dose Admin Sodium Chloride 1,000 mls @ 30 mls/hr 07/01/24 06:15 07/01/24 06:41 Sodium Chloride 0.9% IV 07/02/24 06:14 30 mls/hr .Q24H JESS Administration Pertinent History/Comorbid Conditions* Medical History (Updated 06/03/24 @ 14:11 by Brady Young MD) Plaque psoriasis not active currently Monoarticular arthritis Hx, not active Positive SARANYA (antinuclear antibody) Situational anxiety Chronic neck pain Autoimmune disease Benign essential HTN DDD (degenerative disc disease) Hypothyroidism (acquired) Hyperlipidemia, acquired Hx of emphysema Encounter for long-term (current) use of NSAIDs Surgical History (Updated 12/12/22 @ 13:10 by Cody Cantu DO) Hx of nasal septoplasty History of back surgery C5-C6 FUSION Social History Smoking and tobacco/nicotine status: never used tobacco/nicotine Second hand smoke exposure: Yes Alcohol intake: never Substance/Drug Use: never Pertinent Exam Findings alert, oriented x 3, operative site marked and procedure specific exam findings Please refer to detailed orthopedic examination on 05/10/2024 listed below: Right Shoulder exam: C-Spine ROM: Slightly limited secondary to previous surgery Spurlings: Negative ROM: Active to 160 Passive 180 but with pain on end range TTP tenderness palpation over the bicipital groove, mildly positive over the AC joint Internal Rotation 5/5 External Rotation 5/5 with elbows at side O'Briens: Positive Jobes: Negative Bush Impingement: Positive Speeds Test: Positive Crossover/Neers test: Positive No palpable olecranon bursitis noted Mild tenderness over lateral epicondyle. bilateral upper extremity exam: Negative Tinel's at the elbow on the right Positive medial nerve compression test bilateral Minimal positive Tinel's at the wrist bilateral Positive Phalens bilateral mild thenar weakness bilaterally noted no intrinsic atrophy noted Negative Hoffmans Recommendations Surgery/Procedure today Other Plans: Patient elects proceed with left carpal tunnel release surgery today. Patient understands the ins and outs procedure the risk benefits complication alternatives surgery and through shared decision-making elects proceed with surgical intervention. All questions been answered at this time. Coding Level of Care Code Acute Code for Leroy Garibay
--- NOTE | 2024-07-01 07:20 | ANES.PREANE2 ---
Pre-Anesthetic Assessment Height/Weight: Height 1.83 m Weight 117.027 kg Temp Pulse Resp BP Pulse Ox O2 Del Method 97.2 F L 50 L 18 139/96 95 Room Air 07/01/24 06:20 07/01/24 06:20 07/01/24 06:20 07/01/24 06:20 07/01/24 06:20 07/01/24 06:23 Preop Diagnosis: Left carpal tunnel syndrome Operation Date: 07/01/24 07:40 Proposed Procedures p Carpal Tunnel Release(Left) - Missael Melgoza DO Familial anesthetic complications: None Was Beta Escobar taken within 24 hours: N/A Was Clonidine taken within 24 hours: N/A Last intake: Intake Last Liquid Date 06/30/24 Last Liquid Time 20:30 Last Solid Date 06/30/24 Last Solid Time 20:30 Social No alcohol and No tobacco Exam alert, oriented x 3, clear to auscultation bilaterally and regular rate & rhythm Airway Mallampati: Class II Dentition: chipped and full Comments: Comments: C-spine fusion, adequate cervical extension Pulmonary Sleep Apnea CV/HEM Hypertension Metabolic Thyroid Disease Anesthetic Plan ASA status: 2 Anesthesia: MAC Risk of > 500 ml blood loss (7ml/kg in children): No Medications/Allergies Home Medications Medication Instructions Recorded Confirmed Last Taken Type Cervical Spine Collar #1 ea 10/08/22 06/30/24 Unknown Rx CPAP with setting 7-11 cm with #1 ea 02/19/23 06/30/24 Unknown Rx supplies meloxicam 15 mg tablet 15 mg PO DAILY #90 tabs 11/11/23 06/30/24 Unknown Rx calcium carbonate (Calcium 600) 600 mg PO DAILY 12/12/23 06/30/24 Unknown History cholecalciferol (vitamin D3) 125 125 mcg PO DAILY 12/12/23 06/30/24 Unknown History mcg (5,000 unit) capsule albuterol sulfate 90 mcg/actuation 2 puff inhalation QID PRN 03/17/24 06/30/24 Unknown Rx aerosol inhaler shortness of breath or wheezing #8.5 grams scopolamine base 1 mg over 3 days 1 patch transdermal Q3D PRN nausea 03/25/24 06/30/24 Unknown Rx transdermal patch and vomiting #4 ea chlorthalidone 25 mg tablet See Rx Instructions .Route 06/03/24 06/30/2406/30/24 Rx .COMPLEX #90 tabs levothyroxine 25 mcg tablet See Rx Instructions .Route 06/03/24 06/30/24 06/30/24 Rx .COMPLEX #90 tabs venlafaxine 37.5 mg 37.5 mg PO DAILY #90 caps 06/30/24 06/30/24 Unknown Rx capsule,extended release 24 hr (Effexor XR) Allergies Allergy/AdvReac Type Severity Reaction Status Date / Time legumes Allergy difficulty Verified 06/30/24 15:38 swallowing kiwi Allergy ALGY-Difficulty Uncoded 06/30/24 15:38 Swallowing seafood Allergy difficulty Uncoded 06/30/24 15:38 swallowing Current Medications Generic Name Dose Route Start Last Admin Trade Name Freq PRN Reason Stop Dose Admin Sodium Chloride 1,000 mls @ 30 mls/hr 07/01/24 06:15 07/01/24 06:41 Sodium Chloride 0.9% IV 07/02/24 06:14 30 mls/hr .Q24H JESS Administration PFSH Anesthesia Medical History 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
[2024-07-01] MEDS: ceFAZolin 2,000 MG in sodium chloride 0.9% (plus) 50 ML 100 MG IV (07:34)
[2024-07-01] MEDS: lidocaine-epi 1% 20 mL INJ INJECTION (07:58)
[2024-07-01] MEDS: ROPivacaine 0.5% SDV 30 mL 150 MG INJECTION (07:58)
--- NOTE | 2024-07-01 08:14 | P.BOP_ITS ---
Date of Procedure: 07/01/2024 Surgeon: Missael Melgoza DO Wrapper Stemmer Hand(s): None Procedure(s) performed: Left carpal tunnel release Findings of the procedure(s): Patient found to have left carpal tunnel syndrome underwent procedure as planned without issues or complications Estimated blood loss: 1 mL Specimen(s) removed: None Post-operative diagnosis: Left carpal tunnel syndrome
--- NOTE | 2024-07-01 08:16 | P.OP_ITS ---
Operative Report Date of procedure: July 01, 2024 Surgeon: Missael Melgoza DO Procedure: Preop Diagnosis: Left Carpal Tunnel Syndrome Post-op diagnosis: Same Procedure done: 1. Left carpal tunnel release Surgeon: Missael Melgoza DO Anesthesia: MAC (Local) Estimated blood loss: 1 mL Tourniquet time 10 minutes IV fluids: See anesthesia record Complications: None Findings: See operative report narrative Condition: stable Disposition: same day Brief History: Patient is a pleasant 53 year-old male with left carpal tunnel syndrome. Patient has been worked up in the outpatient setting findings and physical examination consistent with this. Patient nerve conduction studies consistent with carpal tunnel syndrome. We detailed out patient's risk benefits complication alternatives with surgical and nonsurgical treatment options. Through shared decision making, patient agrees to proceed with surgical intervention of the left carpal tunnel release . Patient understands and agrees with current plan. All questions answered. Patient elects to proceed with surgical intervention with carpal tunnel release. Procedure: Patient seen and evaluated in the preoperative holding area. Consent was reviewed and signed with patient. Correct extremity was marked. Patient was seen evaluated by the anesthesia department once cleared for surgery was brought back to the operative suite. [facility] position all bony prominences were well-padded patient properly secured to the bed. Left upper extremity was then placed onto an armboard. A nonsterile tourniquet was applied to the left upper arm. Patient underwent anesthesia per the anesthesia department. Patient's left upper extremity was then prepped and draped in standard orthopedic fashion. Final timeout performed. Patient recei jayde appropriate preoperative antibiotics. Under sterile aseptic technique patient received local anesthesia over the preplanned carpal tunnel incision site. Esmarch was used to exsanguinate the left upper extremity and tourniquet was insufflated to 250 mmHg. A standard mini open left carpal tunnel incision was made. Starting distally at Barton's cardinal line in line with the fourth ray extending proximally distal to the wrist crease centered over the carpal tunnel. Sharp scalpel incision was made through skin and subcutaneous tissue. Self-retaining retractor was placed and the palmar fascia was identified. This was then split longitudinally and direct visualization of the transverse carpal ligament was then made. I then utilizing scalpel feathered through the transverse carpal ligament until I entered the floor of the transverse carpal tunnel ligament into the carpal tunnel. Next I switched to dissection scissors and completed my release of the transverse carpal ligament distally with care to protect the recurrent motor branch. I completely released into the palmar fat and until no entrapment was noted distally. Care was made to protect the superficial palmar arch during my distal dissection. Next, nasal speculum placed proximally for retraction of soft tissue on top of the Transverse carpal ligament. Next the contents of the carpal tunnel where protected and and subsequently utilizing dissection scissors under loupe magnification completely released the transverse carpal ligament proximally into the antebrachial fascia. Care was made to protect the palmar cutaneous branch by keeping my scissors curved ulnarly. Once completely released, I then placed my Holly and had appropriate decompression of the carpal tunnel proximally as well as distally. I then inspected the contents of the carpal tunnel which showed an hourglass shape of the median nerve showing its compression. No masses were noted. Tendons appeared healthy. Wound was then thoroughly irr igated. Tourniquet deflated. Hemostasis satisfactory with bipolar electrocautery. I then closed the incision with interrupted nylon stitches. Xeroform 4 x 4's and a bulky soft dressing was applied to the left upper extremity. Patient was then awakened from anesthesia and taken to PACU in stable condition. Patient tolerated procedure without complications. Disposition: Patient taken to PACU in stable condition recovering well. Dressing clean dry and intact. Patient will receive appropriate discharge instructions as well as pain medication postoperatively. Patient to follow-up with me in the office in 2 weeks. They understand they may be weightbearing as tolerated to the left hand. Patient should keep incision clean dry and intact. Patient understands if any questions or concerns may contact the office.
--- NOTE | 2024-07-01 09:25 | ANE.PACU2 ---
Inpatient post-anesthesia follow up: Airway intact: Yes Vital signs: Temperature 97.2 F Pulse Rate 58 Respiratory Rate 18 Blood Pressure 153/92 Pulse Oximetry 97 Oxygen Delivery Me thod Room Air Oxygen Flow Rate 8 Fraction of Inspir ed Oxygen Hydration adequate: Yes Nausea and vomiting: No Pain level: 1 Mental status: Baseline
== END 2024-07-01 09:25 | disposition home or self-care (01) ==
PROVIDERS: PCP Family Medicine; Visit Provider Student in an Organized Health Care Education/Training Program
PROC: (CPT 64721; principal; 2024-07-01 07:40)
DX: G56.02 Carpal tunnel syndrome, left upper limb (principal)
CPT/HCPCS: 64721; J0131; J0690; J1885; J2250; J2704; J2795; J7030

== ENCOUNTER 2024-10-06 10:25 | Day surgery (SDC) | payer OTHER, SELFPAY ==
[2024-10-06] VITALS (10 sets, daily range): BP systolic 129–197; BP diastolic 63–98; PULSE 65–88; RESP 15–18; TEMP 36.1–37; O2SAT 91–97; BMI 34.2
[2024-10-06] MEDS: acetaminophen 1,000 MG/100 ML PIGGYBACK 400 MG IV (11:33)
[2024-10-06] MEDS: scopolamine 1.5 Patch 1 PATCH TRANSDERMA (11:35)
[2024-10-06] MEDS: ketorolac 30 mg/mL INJ IVP (11:35)
[2024-10-06] MEDS: sodium chloride 0.9% 1,000 ML 30 ML IV (11:35)
--- NOTE | 2024-10-06 13:17 | PC.NURSE ---
1304: right shoulder block performed by KODY using ultrasound guidance, 25 ml of .5% ropivicaine injected
--- NOTE | 2024-10-06 13:25 | P.ANESASSM_ITS ---
Pre-Anesthetic Assessment Height/Weight: Height 1.85 m Weight 117.934 kg Temp Pulse Resp BP Pulse Ox O2 Del Method 98.6 F 72 18 141/98 97 Room Air 10/06/24 11:03 10/06/24 11:03 10/06/24 11:03 10/06/24 11:03 10/06/24 11:03 10/06/24 11:04 Operation Date: 10/06/24 13:15 Proposed Procedures p Carpal Tunnel Release(Right) - Missael Simpson, DO s shoulder diagnostic and surgical arthroscopy(Right) - Missael Rhona, DO s AC Joint Resection(Right) - Missael Rhona, DO s Subacromial Decompression(Right) - Missael Rhona, DO s rotator cuff debridement versus repair(Right) - Missael Rhona, DO s possible biceps tenodesis(Right) - Missael Rhona, DO Familial anesthetic complications: none Was Beta Escobar taken within 24 hours: N/A Was Clonidine taken within 24 hours: N/A Last intake: Intake Last Liquid Date 10/05/24 Last Liquid Time 19:00 Last Solid Date 10/05/24 Last Solid Time 19:00 Social No alcohol and No tobacco Exam alert, oriented x 3, clear to auscultation bilaterally and regular rate & rhythm Airway Mallampati: Class III Dentition: chipped CV/HEM Hypertension Metabolic Thyroid Disease Anesthetic Plan ASA status: 2 Anesthesia: General and Regional (specify below) Risk of > 500 ml blood loss (7ml/kg in children): No Medications/Allergies Home Medications Medication Instructions Recorded Confirmed Last Taken Type Cervical Spine Collar #1 ea 10/08/22 09/21/24 Unknown Rx CPAP with setting 7-11 cm with #1 ea 02/19/23 09/21/24 Unknown Rx supplies calcium carbonate (Calcium 600) 600 mg PO DAILY 12/12/23 10/05/24 2 Weeks Ago History ~09/21/24 cholecalciferol (vitamin D3) 125 125 mcg PO DAILY 12/12/23 10/05/24 2 Weeks Ago History mcg (5,000 unit) capsule ~09/21/24 albuterol sulfate 90 mcg/actuation 2 puff inhalation QID PRN 03/17/24 10/05/24 3 Months Ago Rx aerosol inhaler shortness of breath or wheezing ~07/06/24 #8.5 grams scopolamine base 1 mg over 3 days 1 patch transdermal Q3D PRN nausea 03/25/24 10/05/24 3 Months Ago Rx transdermal patch and vomiting #4 ea ~07/06/24 venlafaxine 37.5 mg 37.5 mg PO DAILY #90 caps 06/30/24 10/05/24 10/01/24 Rx capsule,extended release 24 hr (Effexor XR) B-complex with vitamin C 1 cap PO DAILY 07/08/24 10/05/24 2 Weeks Ago History ~09/21/24 meloxicam 15 mg tablet 15 mg PO DAILY #90 tabs 08/24/24 10/05/24 2 Weeks Ago Rx ~09/21/24 chlorthalidone 25 mg tablet 25 mg PO DAILY 10/05/24 10/05/24 10/01/24 History levothyroxine 25 mcg tablet 25 mcg PO DAILY 10/05/24 10/05/24 10/01/24 History Allergies Allergy/AdvReac Type Severity Reaction Status Date / Time kiwi Allergy ALGY-Difficulty Verified 10/05/24 13:54 Swallowing legumes Allergy difficulty Verified 10/05/24 13:54 swallowing seafood Allergy difficulty Uncoded 10/05/24 13:54 swallowing Current Medications Generic Name Dose Route Start Last Admin Trade Name Freq PRN Reason Stop Dose Admin Sodium Chloride 1,000 mls @ 30 mls/hr 10/06/24 10:45 10/06/24 11:35 Sodium Chloride 0.9% IV 10/07/24 10:44 30 mls/hr .Q24H JESS Administration PFSH Anesthesia Medical History 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
--- NOTE | 2024-10-06 13:26 | ANES.PROC ---
Anesthesia Procedures Procedure/Date: 10/06/24 Nerve Block ^: Nerve Block 1: Main Anesthesia: general anesthesia Time Out Performed: Yes Consent: requested by attending/covering physician, from patient, from other, risks and benefits reviewed and patient agrees to proceed Nerve block location: interscalene (R) Anesthesia monitors applied: pulse oximetry, EKG, BP cuff and oxygen Nerve block position: semi sitting Anesthetic Used: ropivicaine 0.5% (25 cc) and with decadron (4 mg) Ultrasound used to: recognize landmarks, visualize and ID brachial plexus, in supraclavicular region and visualize and ID interscalene groove Nerve Stimulator Used?: No Interscalene/Femoral BLK: 2 stimuplex 22 g needle used for position and inplane approach, visualize local anesthetic spread and no vascular puncture identified Injection: neg aspiration of heme Patient Tolerated Procedure: well Complications: none
--- NOTE | 2024-10-06 13:54 | W.PM.OPSUD ---
Surgery/Procedure H&P Update DATE OF PROCEDURE: October 06, 2024 DATE H&P PERFORMED: 09/21/24 H&P UPDATE INFORMATION: I have reviewed H&P completed within last 30 days, I have examined patient prior to procedure and No changes to prior documentation PREOP DIAGNOSIS: Right shoulder rotator cuff tear, biceps tendinitis, AC joint arthritis, ro PRIMARY INDICATION FOR PROCEDURE: Right shoulder rotator cuff tear, biceps tendinitis, AC joint arthritis, rotator cuff impingement syndrome, right carpal tunnel syndrome PLANNED PROCEDURE: Operation Date: 10/06/24 13:15 Proposed Procedures p Carpal Tunnel Release(Right) - DO gaudencio Huff shoulder diagnostic and surgical arthroscopy(Right) - DO gaudencio Huff AC Joint Resection(Right) - DO gaudencio Huff Subacromial Decompression(Right) - DO agudencio Huff rotator cuff debridement versus repair(Right) - DO gaudencio Huff possible biceps tenodesis(Right) - Missael Melgoza DO
[2024-10-06] MEDS: ceFAZolin 2,000 mg SDV 2000 MG IVP (13:57)
[2024-10-06] MEDS: EPINEPHrine 1 mg/mL INJ 2 MG XX (14:57)
--- NOTE | 2024-10-06 16:05 | PM.OP ---
Operative Report Date of procedure: September Surgeon: Missael Melgoza DO Motorcycle Subassembly Repairer: Hemal Melgoza PA-C: PA was necessary for assistance in this case with hand positioning to execute the procedure, retraction and protection of neurovascular structures as well as to assist with wound closure and dressing application. PA was necessary for assistance in this case with shoulder positioning to execute the procedure, assistance with instrumentation, as well as implant fixation when necessary, assist with wound closure and dressing application. Procedure: Preoperative diagnosis: Right shoulder rotator cuff tear, biceps tendinitis, AC joint arthritis, rotator cuff impingement syndrome, right carpal tunnel syndrome Post-op diagnosis: Right carpal tunnel syndrome, right shoulder biceps tendinitis, labral tear, grade I and II chondromalacia, small rotator cuff surface tear and ac joint arthritis Procedure done: Right carpal tunnel release Right shoulder diagnostic and surgical arthroscopy with biceps tenodesis Right shoulder diagnostic and surgical arthroscopy with rotator cuff debridement Right shoulder diagnostic and surgical arthroscopy labral debridement Right shoulder diagnostic and surgical arthroscopy acromioclavicular joint resection Right shoulder diagnostic and surgical arthroscopy subacromial decompression (acromioplasty and bursectomy) Surgeon: Missael Melgoza DO Estimated blood loss: 15mL IV fluids: See anesthesia record Implants: Bicep tenodesis loop and tack kit Tourniquet for carpal tunnel release?4 minutes Complications: None Condition: stable Disposition: same day Brief History: Patient been seen and worked up in the outpatient setting for right shoulder pain and right carpal tunnel syndrome.? Pt had an MRI which showed findings below.? Patient's failed conservative treatment and has weakness.? We talked about treatment options far as nonoperative and operative intervention..? We talked about risk benefits complication alternatives surgical nonsurgical treatment options.? Understanding risk of surgery he agrees to proceed with surgical intervention.? All questions have been answered at this time.? Patient elects proceed with surgery for right carpal tunnel release and right shoulder diagnostic and surgical arthroscopy with AC joint resection, subacromial decompression, rotator cuff debridement versus repair, possible biceps tenodesisand consent obtained in office. MR/MR shoulder RT wo/w con [id number] IMPRESSION: 1. Severe AC joint arthritis with encroachment upon the myotendinous portion of the supraspinatus. 2. Increased T2 signal in the narrowed coracohumeral interval. The increased signal is within the biceps tendon in the subscapularis tendon. There is a fluid gap on the postcontrast images in the distal subscapularis tendon suspicious for high-grade tear. 3. Biceps tendon appears appropriately positioned. 4. No labral tear. 5. Possible very tiny insertion site tear of the infraspinatus tendon. Procedure: Patient seen evaluated in the preoperative holding area.? Consent reviewed and signed with patient.? Once again reviewed patient's MRI results as well as? planned surgical intervention.? Correct extremity marked.? Patient seen evaluated by anesthesia department received regional anesthesia.? Once ready for surgery was taken back to the operative suite.? Patient then subsequently underwent anesthesia per the anesthesia department was transported onto the OR table.? Patient was then placed into a lateral decubitus position with a beanbag and was appropriately secured to the bed.? All bony prominences well-padded.? Patient then had the right upper extremity was then prepped and draped in standard orthopedic fashion.? Patient received appropriate preoperative antibiotics.? Final timeout performed. The right upper extremity was then held in hanging from traction utilizing sterile technique.? Next started with standard diagnostic and surgical arthroscopy with posterior portal position introduced arthroscope into the glenohumeral joint.? Visualized the glenohumeral joint I then introduced a spinal needle within the?rotator?cuff interval to confirm appropriate anterior portal placement.? Once this was confirmed I then made my small incision and then introduced my arthroscopic shaver into the glenohumeral joint.? After flushing the joint fluid, was clearly evident patient had biceps tendon tearing as well as Superior labral tear. Patient had appreciable unstable biceps anchor most pronounced in the superior labrum. Given there appears to be healthy intra-articular tendon plan was for an intra-articular biceps tenodesis at the superior portion as it enters the intertubercular groove. Thermal wand introduced into the rotator interval. I then release of the rotator interval to have appropriate visualization and the ability to perform biceps tenodesis. At this point I established a purple passport cannula which was introduced. Next I performed an Arthrex loop and tap biceps tenodesis. Passer was then made around the tendon luggage tag stitch around and then thru the tendon and around twice I then utilized a thermal wand to release the biceps tendon at the anchor to perform with tenotomy. I then loaded with suture onto an Arthrex 4.75 swivel lock suture anchor. A punch was then placed in appropriate position at the entry point into the intertubercular groove just superior to the subscapularis tendon. Punch was then introduced to the appropriate depth. The suture loaded on the swivel lock was then advanced held under appropriate tension and shoulder lock anchor was then advanced and had excellent fixation. Excess suture was then cut biceps tenodesis was complete. I then utilized a thermal wand to seal the edges of the superior labrum. Next I evaluated the subscapularis tendon which was pristine and intact and no evidence of tear. ?Next there was significant labral tearing at biceps anchor and circumferential.? ? I then subsequently utilized a a arthroscopic shaver and thermal wand to perform a labral debridement.? This point time I then visualized the glenohumeral joint.? The glenohumeral joint was found to have grade 1-2? chondromalacia throughout.? Axillary pouch was free of loose bodies from viewing the posterior portal.? Next a visualized the?rotator?cuff superiorly and there was found to be a no evidence of tear, negative escape bubble sign.? ?? This completed my work within the glenohumeral joint all fluid was suctioned free of the joint.? ?Next I reintroduced the arthroscope posteriorly.? And went to the subacromial space.? I established my lateral working portal at the site of which my spinal needle was marking of the?rotator?cuff tear.? Thermal wand was then introduced laterally and then I subsequently performed extensive bursectomy of the subacromial space.? Patient had a large anterior bone spur.? At this point time I proceeded with my AC joint resection thermal wand was used and track to the anterior edge of the acromion and then tracked all the way to the AC joint.? Once identified the AC joint this was very arthritic in nature.? Thermal wand was placed anteriorly to establish appropriate plane for AC joint resection.? Once appropriate margins and anterior inferior and anterior capsule was released I then introduced arthroscopic shaver and a bur and performed AC joint resection of both the acromion to cope plane at the AC joint and a distal clavicle resection was then performed totaling 1 cm in size and was confirmed.? This completed my AC joint resection and I then introduced the arthroscopic shaver laterally while continuing to view posteriorly.? I then performed an acromioplasty to complete my subacromial decompression prior to fixing the?rotator?cuff tear.? Next I utilized arthroscopic shaver to probe and evaluate the rotator cuff tendon this was diffusely intact with no evidence of tear there was some fraying of roughly just the top 5% of the bursal surface this was just gently debrided to stimulate for some healing but no evidence of full-thickness tear was noted of the rotator cuff. ?Next I then introduced the arthroscopic shaver posteriorly to complete my subacromial decompression appropriate complaining all the way up to the lateral edge of the acromion.? This completed the surgery.? All fluid was suctioned from the shoulder.? All instruments were removed.? The lateral incision was then closed with nylon stitches.? As well as the portal sites closed with portal nylon stitches.? Xeroform 4 x 4's ABD and tape was then applied to the right shoulder. At this point time we took down all the drapes and then prepped for the right carpal tunnel release. A nonsterile tourniquet was applied to the distal arm and an armboard was applied to the right upper extremity. The right upper extremity was then prepped and draped in standard orthopedic fashion final timeout was once again performed confirming a right carpal tunnel release surgery Esmarch was used to exsanguinate the Right upper extremity and tourniquet was insufflated to 250 mmHg. A standard mini open Right carpal tunnel incision was made. Starting distally at Barton's cardinal line in line with the fourth ray extending proximally distal to the wrist crease centered over the carpal tunnel. Sharp scalpel incision was made through skin and subcutaneous tissue. Self-retaining retractor was placed and the palmar fascia was identified. This was then split longitudinally and direct visualization of the transverse carpal ligament was then made. I then utilizing scalpel feathered through the transverse carpal ligament until I entered the floor of the transverse carpal tunnel ligament into the carpal tunnel. Next I switched to dissection scissors and completed my release of the transverse carpal ligament distally with care to protect the recurrent motor branch. I completely released into the palmar fat and until no entrapment was noted distally. Care was made to protect the superficial palmar arch during my distal dissection. Next I utilized a nasal speculum placed on top of the transverse carpal ligament and utilize this to retract the subcutaneous fat and tissue and under direct loupe magnification was able to identify the transverse carpal ligament. Next I then protected the contents of the carpal tunnel and subsequently utilizing dissection scissors under loupe magnification completely released the transverse carpal ligament proximally into the antebrachial fascia. Care was made to protect the palmar cutaneous branch by keeping my scissors curved ulnarly. Once completely released, I then placed my Brodnax and had appropriate decompression of the carpal tunnel proximally as well as distally. I then inspected the contents of the carpal tunnel which showed an hourglass shape of the median nerve showing its compression. No masses were noted. Tendons appeared healthy. Wound was then thoroughly irrigated. Tourniquet deflated. Hemostasis satisfactory with bipolar electrocautery. I then closed the incision with interrupted nylon stitches. Xeroform 4 x 4's and a bulky soft dressing was applied. Patient then had an UltraSling applied to the right upper extremity for bicep tenodesis Patient was then awakened from anesthesia and taken to PACU in stable condition. Patient tolerated procedure without complications. Disposition: Patient taken back in stable condition recovering well.? Dressings on in place clean dry and intact.? Will be nonweightbearing to the right upper extremity.? Follow?bicep tenodesis protocol and postop carpal tunnel release protocol..? Patient to follow-up with me in the office in 2 weeks.? Patient will receive appropriate discharge instruction as well as pain medication postoperatively.? All questions answered.? We will contact the office for any questions or concerns.
--- NOTE | 2024-10-06 16:12 | W.PM.BPON ---
Date of Procedure: [October 06, 2024] Surgeon: [Dr. Melgoza DO] Continuity Director(s): [Hemal Melgoza PA-C] Procedure(s) performed: [Right carpal tunnel release right diagnostic and surgical arthroscopy Biceps tenodesis Labral debridement Rotator cuff debridement AC joint resection] Findings of the procedure(s): [Right carpal tunnel syndrome, right shoulder biceps tendinitis, labral tear, grade I and II chondromalacia, small rotator cuff surface partial fraying less than 5% and ac joint arthritis. Procedure went well and as planned] Estimated blood loss: [15 ml] Specimen(s) removed: [n/a] Post-operative diagnosis: [Right carpal tunnel syndrome, right shoulder biceps tendinitis, labral tear, grade I and II chondromalacia, small rotator cuff surface tear and ac joint arthritis. ]
--- NOTE | 2024-10-06 16:22 | PM.PACU ---
PACU note Narrative: Patient is a 54-year-old male that just underwent a right shoulder diagnostic and surgical arthroscopy with right carpal tunnel release. Patient transferred to PACU in stable condition. Pain is well controlled. shoulder Dressing on , dry and in place. Patient's operative arm is in a shoulder immobilizer and dressing on hand is dry and in place. Patient is awake and alert and able to respond to my questions accordingly. Patient's fingers are warm with good perfusion. Normal cap refill under 2 seconds. Patient is able to wiggle his fingers. unable to assess further range of motion in arm due to sling. Unable to assess sensation due to residual localized anesthetic. Exam: awake Disposition: discharged
== END 2024-10-06 17:30 | disposition home or self-care (01) ==
PROVIDERS: PCP Family Medicine; Visit Provider Student in an Organized Health Care Education/Training Program
PROC: (CPT 64721; principal; 2024-10-06 13:15)
PROC: (CPT 29805; 2024-10-06 13:15)
PROC: 0RSG0ZZ Reposition Right Acromioclavicular Joint, Open Approach (ICD-10-PCS; CPT 29828; 2024-10-06 13:15)
PROC: (CPT 29826; 2024-10-06 13:15)
PROC: (CPT 29827; 2024-10-06 13:15)
PROC: (CPT 23430; 2024-10-06 13:15)
DX: M75.101 Unspecified rotator cuff tear or rupture of right shoulder, not specified as traumatic (principal); M75.21 Bicipital tendinitis, right shoulder; M19.011 Primary osteoarthritis, right shoulder; M25.811 Other specified joint disorders, right shoulder; G56.01 Carpal tunnel syndrome, right upper limb; I10 Essential (primary) hypertension; E03.9 Hypothyroidism, unspecified; E78.5 Hyperlipidemia, unspecified; Z79.1 Long term (current) use of non-steroidal anti-inflammatories (NSAID)
CPT/HCPCS: 29828; 29823; 29824; 64721; C1713; J0131; J0171; J0330; J0690; J1100; J1885; J2250; J2405; J2704; J2710; J2795; J3010; J3490; J7030

== ENCOUNTER 2024-10-27 06:00 | Outpatient (RCR) | payer OTHER, SELFPAY | END 2024-11-19 23:59 | disposition home or self-care (01) | LOC: SPT 06:00 | PROVIDERS: Visit Provider Physician Assistant | DX: M75.21 Bicipital tendinitis, right shoulder (principal); M12.811 Other specific arthropathies, not elsewhere classified, right shoulder; Z47.89 Encounter for other orthopedic aftercare | CPT/HCPCS: 97110; 97161 ==

== ENCOUNTER 2024-11-20 06:30 | Outpatient (RCR) | payer OTHER, SELFPAY | END 2024-12-13 08:06 | disposition home or self-care (01) | LOC: SPT 06:30 | PROVIDERS: PCP Family Medicine; Visit Provider Physician Assistant | DX: Z98.890 Other specified postprocedural states (principal) | CPT/HCPCS: 97110 ==

== ENCOUNTER → 2025-03-25 15:04 | Outpatient (BNVA) | payer OTHER, SELFPAY | PROVIDERS: PCP Family Medicine; Visit Provider Family Medicine | DX: E03.9 Hypothyroidism, unspecified (principal) | CPT/HCPCS: 80061; 84439; 84443 ==

== ENCOUNTER → 2025-03-29 16:03 | Outpatient (BNVA) | payer OTHER, SELFPAY | PROVIDERS: PCP Family Medicine; Visit Provider Internal Medicine Rheumatology | DX: Z79.899 Other long term (current) drug therapy (principal) | CPT/HCPCS: 36415; 80076; 82306; 82565; 83036; 85025; 85651; 86140 ==

== ENCOUNTER 2025-07-15 11:01 | Outpatient (CLI) | payer OTHER, SELFPAY ==
--- NOTE | 2025-07-15 11:14 | XR_ITS ---
WS: [id number] Exam: XR cervical spine 3V* [id number] Date/Time of Exam: 07/15/2025 11:20 AM Reason For Exam: M54.2 - Cervicalgia DLP: Comparison 01/20/2024. There is operative anterior fusion of the C-spine from C5-C7. Plate and screws are noted at C5-6. Screws are noted at the C3 6 7 level. The fusion remains in good alignment. No sign of hardware complication. Mild facet DJD. Normal paraspinal soft tissues. The dens is intact. The upper C-spine is normal. XR/XR cervical spine 3V* [id number] IMPRESSION: 1. Operative fusion from C5-C7 that is stable in appearance. No change or compl ication.
--- NOTE | 2025-07-15 11:14 | XR_ITS ---
WS: [email or web address] Exam: XR chest 2V* [id number] Date/Time of Exam: 07/15/2025 11:20 AM Reason For Exam: R05.3 - Chronic cough Comparison 12/12/2023. Lungs are completely expanded and clear. Normal cardiomediastinal silhouette. No pleural effusion. Bony structures are intact. Fusion hardware in the lower C-spine. XR/XR chest 2V* [id number] IMPRESSION: 1. No acute cardiopulmonary finding. No change.
== END 2025-07-15 11:02 | disposition home or self-care (01) ==
PROVIDERS: PCP Nurse Practitioner; Visit Provider Nurse Practitioner
DX: M54.2 Cervicalgia (principal); R05.3 Chronic cough
CPT/HCPCS: 71046; 72040

== ENCOUNTER 2025-08-26 08:30 | Outpatient (RCR) | payer OTHER, SELFPAY | END 2025-09-18 23:59 | disposition home or self-care (01) | LOC: SOT 08:30 | PROVIDERS: Visit Provider Physician Assistant | DX: G56.12 Other lesions of median nerve, left upper limb (principal) | CPT/HCPCS: 97035; 97140; 97165 ==

== ENCOUNTER 2025-09-22 07:21 | Outpatient (CLI) | payer OTHER, SELFPAY ==
--- NOTE | 2025-09-22 07:26 | US_ITS ---
WS: [id number] BILATERAL 3D TOMOSYNTHESIS DIGITAL DIAGNOSTIC MAMMOGRAPHY WITH CAD CLINICAL INFORMATION: N64.4 - Mastodynia HISTORY: RIGHT areola pain COMPARISON: None. TECHNIQUE: Bilateral CC, MLO, and ML views. FINDINGS: Scattered fibroglandular densities bilaterally. Dense fibroglandular tissue RIGHT subareolar more prominent compared to the LEFT most compatible with gynecomastia. Ultrasound described below. ULTRASOUND BREAST RIGHT TECHNIQUE: Ultrasound right breast focused area of concern. CLINICAL INFORMATION: N64.4 - Mastodynia FINDINGS: Ultrasound subareolar RIGHT breast. Comparison LEFT breast. No visualized RIGHT subareolar nodule or mass. Dense shadowing subareolar tissue compatible with benign gynecomastia. This is slightly more prominent and asymmetric compared to the LEFT. No other suspicious findings. US/US breast RT limited* [id number] IMPRESSION: DENSITY: There are scattered areas of fibroglandular density. BI-RADS: 2 - Benign FOLLOW UP: See Report Findings compatible with benign gynecomastia. If persistent pain or enlarging n odule, recommend return for further evaluation.
--- NOTE | 2025-09-22 08:00 | MM_ITS ---
WS: [id number] BILATERAL 3D TOMOSYNTHESIS DIGITAL DIAGNOSTIC MAMMOGRAPHY WITH CAD CLINICAL INFORMATION: N64.4 - Mastodynia HISTORY: RIGHT areola pain COMPARISON: None. TECHNIQUE: Bilateral CC, MLO, and ML views. FINDINGS: Scattered fibroglandular densities bilaterally. Dense fibroglandular tissue RIGHT subareolar more prominent compared to the LEFT most compatible with gynecomastia. Ultrasound described below. ULTRASOUND BREAST RIGHT TECHNIQUE: Ultrasound right breast focused area of concern. CLINICAL INFORMATION: N64.4 - Mastodynia FINDINGS: Ultrasound subareolar RIGHT breast. Comparison LEFT breast. No visualized RIGHT subareolar nodule or mass. Dense shadowing subareolar tissue compatible with benign gynecomastia. This is slightly more prominent and asymmetric compared to the LEFT. No other suspicious findings. MM/MM diag BI tomosynthesis [id number] IMPRESSION: DENSITY: There are scattered areas of fibroglandular density. BI-RADS: 2 - Benign FOLLOW UP: See Report Findings compatible with benign gynecomastia. If persistent pain or enlarging n odule, recommend return for further evaluation.
== END 2025-09-22 07:22 | disposition home or self-care (01) ==
LOC: RAD 07:22
PROVIDERS: Visit Provider Nurse Practitioner
DX: N64.4 Mastodynia (principal); R92.8 Other abnormal and inconclusive findings on diagnostic imaging of breast
CPT/HCPCS: 76642; 77062; G0279